=== PATIENT | male | born 1990 | race Hispanic/Latino ===

== ENCOUNTER 2017-06-09 07:27 | Emergency (ER) | payer OTHER ==
[2017-06-09] MEDS: IBUPROFEN 800 MG TAB PO (08:12)
== END 2017-06-09 09:00 | disposition home or self-care (01) ==
LOC: M ED 07:27
DX: S80.12XA Contusion of left lower leg, initial encounter (principal); W51.XXXA Accidental striking against or bumped into by another person, initial encounter; Y92.830 Public park as the place of occurrence of the external cause; Z91.013 Allergy to seafood
CPT/HCPCS: 73564

== ENCOUNTER 2017-08-30 17:13 | Emergency (ER) | payer OTHER | END 2017-08-30 21:45 | disposition home or self-care (01) | LOC: M ED 17:13 | DX: S80.11XA Contusion of right lower leg, initial encounter (principal); W21.07XA Struck by softball, initial encounter; Y92.830 Public park as the place of occurrence of the external cause; Z91.013 Allergy to seafood | CPT/HCPCS: 73610 ==

== ENCOUNTER → 2018-07-09 | Outpatient (CLI) | payer OTHER ==
--- NOTE | 2018-07-11 08:57 | REP ---
MR lumbar spine without contrast History: Back pain Decreased signal intensity on T2-weighted images is present in the S1 intervertebral disc. The disc is decreased in height. These findings are consistent with disc degeneration. There is no disc bulge or herniation at the L1-2 through L3-4 levels. The nerves exit the neural foramina without compression. A diffuse disc bulge is present at the L4-5 level. This abuts the thecal sac. The L4 nerves exit the neural foramina without compression. A diffuse disc bulge and small central disc protrusion are present at the L5-L1 level. There is minimal compression of the thecal sac. The L5 nerves exit the neural foramina without compression. The conus medullaris is normal in appearance terminating at the level of the L1-2 intervertebral disc. Normal signal intensity is present in the lumbar vertebral bodies. Impression: 1. Diffuse disc bulge at in the L4-5 level. This abuts the thecal sac. 2. Diffuse disc bulge and small central disc protrusion at the L5-L1 level with minimal thecal sac compression. Electronically Signed by Isidoro Medrano MD 07/11/2018 08:48 A
== END ==
LOC: M RAD 15:00
DX: M54.5 Low back pain (principal)